=== PATIENT | male | born 1980 | race Caucasian/White ===

== ENCOUNTER 2024-09-10 13:08 | Emergency (ER) | payer OTHER, SELFPAY ==
[2024-09-10 13:11] VITALS: BP 151/90
--- NOTE | 2024-09-10 14:17 | ED.GENMED ---
History of Present Illness
General
Chief Complaint: Back Pain
Source: patient
Time Seen by Provider: 09/10/24 13:53
History of Present Illness
History of Present Illness:
43-year-old male with no significant past medical history presents the emergency department after he started with left-sided lower back pain yesterday which was described to be very mild, today pain was much more severe and had a hard time even
getting out of bed and ambulating. Patient used crutches to get to his car to come to the ER today. He was brought by his . Patient did take 2 tablets of Aleve around 8 AM which gave him only mild relief. Patient denies any falls or
traumatic injuries, focal weakness or numbness, radicular pain, fevers, substance abuse, saddle anesthesia or any other concerning symptoms. Patient notes that at rest the pain is tolerable but when he attempts any movement is when pain gets
significantly worse.
Past History
Past History
ED Past Medical History: None
ED Past Surgical History: Orthopedic
Social History
Tobacco: Non-smoker
Alcohol: None
Drug: None
Personal:
Living: with family
Review of Systems
Review of Systems
All Other Systems: ROS reviewed and negative except as documented in HPI and ROS
Phy Exam
Physical Exam
Physical Exam:
GENERAL: Alert , in no apparent distress at rest but appears uncomfortable/in pain with any movement
EYE: clear conjunctiva b/l
NECK: Supple
ENT: o/p clr, mmm.
ABDOMEN: Soft, without focal tenderness, no r/g, no cvat
BACK: limited range of motion 2/2 pain, no focal tenderness, no midline bony tenderness, no rashes
NEUROLOGICAL: Alert and oriented, no focal neuro deficits. Patellar deep tendon reflexes intact and equal bilaterally, sensation grossly intact and equal to light touch bilateral lower extremities
SKIN: Warm and dry, skin intact.
MUSCULOSKELETAL: No edema, well perfused. EHL intact bilaterally
PSYCH: Normal and appropriate interaction.
Scores
Heart Failure Risk
Heart Failure Risk Score: Not Applicable
Heart Score for Chest Pain Patients
STEMI patient?: Not applicable
Withdrawal Assessment of Alcohol
Withdrawal Assessment Completed?: Not applicable
Course
Orders/Labs/Results
Orders:
Orders
09/10/24 14:04
Diazepam [Valium] 5 mg PO NOW STA
Ibuprofen [Motrin] 600 mg PO NOW STA
Lidocaine [Lidocaine 4% Patch] 1 patch TOPICAL NOW STA
Apply Lidocaine patch(s) to:: left lower back
CR Lumbar Spine Comp Min 4 Vw* Urgent
Comment:
Reason For Exam: left lower back pain
Vital Signs
Initial and Last Documented VS:
Initial Vital Signs
Temp Pulse Resp BP Pulse Ox
99.4 F 67 16 151/90 100
09/10/24 13:11 09/10/24 13:11 09/10/24 13:11 09/10/24 13:11 09/10/24 13:11
Last Documented Vital Signs
Temp Pulse Resp BP Pulse Ox
99.4 F 67 16 151/90 100
09/10/24 13:11 09/10/24 13:11 09/10/24 13:11 09/10/24 13:11 09/10/24 13:11
MDM/Problems Addressed
Differential Diagnosis Includes:
lumbar strain, spinal stenosis, sciatica, disc herniation/nerve impingement, no concern for neurogenic claudication, no concern for infectious etiology
MDM/Problems Addressed:
43-year-old male presenting to the ER for evaluation of nontraumatic left-sided lower back pain that started yesterday, acutely worse today despite taking 2 Aleve around 8 AM this morning. No fevers or infectious symptoms. Symptoms seem to be most
likely related to musculoskeletal etiology given significantly worse with movement. Will check x-ray. Pain control with Motrin, Valium and topical Lidoderm patch. Discussed outpatient treatment plan to which patient and significant other were
agreeable. Anticipate discharge home following imaging.
*Radiology
Radiology exam reviewed: preliminary read by ED provider (No fracture, straightening and loss of lordotic curve)
*Pulse Oximetry
Patient hypoxic: no
*Critical Care Note
Total Time (30-74mins, 75-104mins- exclusive of procedures): Not Applicable
Patient Management
Escalation/DeEscalation of care consider admission/obs:
X-ray shows straightening of the lordotic curve of the lumbar spine but no other abnormalities. Patient stable for discharge home and outpatient management as needed.
ED Attending Note
-
Portions of this chart may have been created with voice recognition software.� Occasional wrong word or��sound alike� substitutions may have occurred due to the inherent limitations of voice recognition software.
Discharge Plan
Departure
Patient Disposition: Home (Routine Discharge)
Date of Disposition: 09/10/24
Time of Disposition: 15:17
Patient with high blood pressure during this ER visit?: Yes
Discharge Problem:
Low back pain
Instructions: Low Back Pain (DC)
Prescriptions:
New
methylprednisolone [Medrol (Bobby)] 4 mg tablets,dose pack
4 mg PO DIRECTED Qty: 21 0RF
diazepam [Valium] 5 mg tablet
5 mg PO BID PRN (Reason: muscle spasm) Qty: 10 0RF
No Action
ibuprofen [Advil] 200 MG tablet
400 mg PO Q6HPRN PRN (Reason: fever)
oseltamivir [Tamiflu] 75 MG capsule
75 mg PO BID Qty: 10 0RF
Referrals:
Shivam Rosales CRNP [Family Provider] -
Interventions
Interventions:
*Risk Screen - Suicide Last Done: 09/10/24 13:11
*General Assessment Last Done: 09/10/24 14:30
*Neglect/Abuse Screening Last Done: 09/10/24 13:11
*ED COVID-19 Vaccine History Last Done: 09/10/24 14:30
ED-Musculoskeletal Assessment Last Done: 09/10/24 14:30
Discharge Date and Time
Print Language: [place]
[2024-09-10] MEDS: LIDOCAINE 4% PATCH 1 PATCH TOPICAL (14:27)
[2024-09-10] MEDS: MOTRIN 600 MG PO (14:27)
[2024-09-10] MEDS: VALIUM 5 MG PO (14:28)
== END 2024-09-10 15:44 | disposition home or self-care (01) ==
LOC: EMR 13:08
PROVIDERS: EMERGENCY PHYSICIAN Emergency Medicine; FAMILY PHYSICIAN Registered Nurse
DX: M54.50 Low back pain, unspecified (principal)
CPT/HCPCS: 99283; 72110